=== PATIENT | male | born 1970 | race African-American/Black ===

== ENCOUNTER 2020-08-10 16:45 | Emergency (ER) | payer BC, SELFPAY ==
[~2020-08-10 16:45] MED LIST: Iopamidol 370 76% 100 ML VIAL ONE
[2020-08-10] MEDS ORDERED: Sodium Chloride 0.9% 1,000 ML ONE (17:30)
--- NOTE | 2020-08-10 17:43 | RAD ---
RADIOGRAPH CHEST 2 VIEWS: Date: 08/10/20 Time: 5:25 p.m. HISTORY: 49-year-old male with cough. COMPARISON: 08/24/15. FINDINGS: Again, inspiration is shallow on the frontal view. Borderline cardiomegaly. No pleural effusion, pulm onary edema, or pneumothorax. On the AP view, there is a subtle, faint apparently new ill-defined opacity a few centimeters in size projecting over the right mid-lower lung zone. This may or may not correspond to what appears to be an air fluid level on the lateral view which would place this in the anterior segment of right upper lobe. IMPRESSION: 1. Questionable cavitary lesion in right lung. 2. Recommend chest CT. JN [] POS: JIN
[2020-08-10 17:49] LABS: #Basophils 0.1 thou/uL (0.0-0.2); #Eosinphils 0.1 thou/uL (0.0-0.7); #Lymphocytes 0.9 thou/uL (1.20-3.40); #Monocytes 0.4 thou/uL (0.11-0.59); %Basophils 1.3 % (0.0-1.0); %Eosinophils 2.3 % (0.0-10.0); %Lymphocytes 16.5 % (21.0-51.0); %Neutrophils 71.9 % (42.0-75.0); Hemoglobin 14.1 g/dL (14.0-18.0); Mean Corpuscular HGB CONC 34.6 g/dL (32.0-36.0); Mean Corpuscular Hemoglobin 29.4 pg (27.0-31.0); Mean Corpuscular Volume 84.9 fL (78.0-98.0); Mean Platelet Volume 11.5 fL (7.4-10.4); Platelet Count 191 thou/uL (130-400); RBC Distribution Width 13.1 % (11.5-14.5); Red Blood Cell (RBC) Count 4.81 mill/uL (4.70-6.10); White Blood Cell (WBC) Count 5.5 thou/uL (4.8-10.8)
[2020-08-10 17:55] LABS: ALT (SGPT) 27 U/L (8-55); AST (SGOT) 23 U/L (5-34); Albumin 4.1 g/dL (3.5-5.0); Alkaline Phosphatase 117 U/L (40-110); Anion Gap 19 mmol/L (10-20); BUN (Urea Nitrogen) 14 mg/dL (8.9-20.6); Bilirubin, Total 0.6 mg/dL (0.2-1.2); Calc. Creatinine Clearance 0 mL/min (70-130); Carbon Dioxide 21 mmol/L (22-29); Chloride 100 mmol/L (98-107); Globulin 4.6 g/dL (2.4-3.5); Glucose 402 mg/dL (70-105); Potassium 4.8 mmol/L (3.5-5.1); Protein, Total 8.7 g/dL (6.0-8.3); Sodium 135 mmol/L (136-145)
[2020-08-10 19:29] LABS: CKMB 2.8 ng/mL (0-6.6)
--- NOTE | 2020-08-10 19:54 | CT ---
CT CHEST WITH IV CONTRAST: 08/10/20 INDICATIONS: Mass density right lung noted on today's chest film. Exam is performed in follow-up. FINDINGS: Review of the lung crenshaw reveals a rounded mass-like density in the right middle lobe which measures 3.7 cm in the axial plane. This has hazy borders and there are air bronchograms in the mid portion o f this mass density. Findings most likely represent dense infectious consolidation. Underlying mass i s not excluded and recommend continued close follow-up after medical treatment for pneumonia. The lungs otherwise clear. No effusion. Mediastinum unremarkable. Upper abdomen unremarkable. IMPRESSION: Focal mass-like density in the right middle lobe with surrounding haziness and internal air bronchogr ams suggests dense inflammatory consolidation. Recommend follow-up with treatment to ensure clearing. POS: AGW
[2020-08-10] MEDS ORDERED: Azithromycin 250 MG TAB ONE (20:18)
[2020-08-10] MEDS ORDERED: cefTRIAXone\\ROCEPHIN 1 GM VIAL ONE (20:18)
[2020-08-10] MEDS ORDERED: Sodium Chloride 0.9% 100 ML ONE (20:19)
[2020-08-11 14:13] LABS: SARS-CoV-2 PCR by NAA DETECTED (NotDetected)
== END 2020-08-10 20:52 | disposition home or self-care (01) ==
LOC: NAV ERS 16:45
DX: U07.1 COVID-19 (principal); J12.82 Pneumonia due to coronavirus disease 2019; E11.9 Type 2 diabetes mellitus without complications; E78.5 Hyperlipidemia, unspecified; I10 Essential (primary) hypertension; Z79.899 Other long term (current) drug therapy
CPT/HCPCS: 36415; 71046; 71260; 80053; 82553; 83605; 84484; 85025; 87635; 96374; J0696; J3490; J7050; Q9967; U0003; U0005

== ENCOUNTER 2021-02-05 08:33 | Emergency (ER) | payer SELFPAY ==
[2021-02-06 11:45] LABS: SARS-CoV-2 PCR by NAA Not Detected (NotDetected)
== END 2021-02-05 09:17 | disposition home or self-care (01) ==
LOC: NAV ERS 08:33
DX: R05 Cough (principal); R51.9 Headache, unspecified; Z20.822 Contact with and (suspected) exposure to COVID-19; E11.9 Type 2 diabetes mellitus without complications; E78.5 Hyperlipidemia, unspecified; I10 Essential (primary) hypertension; Z79.4 Long term (current) use of insulin; Z79.899 Other long term (current) drug therapy
CPT/HCPCS: 99283; U0003; U0005